=== PATIENT | female | born 1965 | race Caucasian/White ===

== ENCOUNTER 2017-08-17 07:48 | Emergency (ER) | payer SELFPAY ==
--- NOTE | 2017-08-17 08:21 | ERNOTE ---
Time Seen by Provider: 08/17/17 08:10 Stated Complaint: EAR INFECTION/CONGESTION Presenting Symptoms:: cough, sore throat, runny nose Source: patient Exam Limitations: no limitations Immunizations: IMMUNIZATION HX Immunizations Up to Date Yes History of Influenza Vaccine Yes Hx Pneumococcal Vaccination No Allergies/Adverse Reactions: Allergies amoxicillin trihydrate [From Augmentin] Adverse Reaction (Mild, Verified 07:56) RASH carbamazepine [From Tegretol] Adverse Reaction (Mild, Verified 08/17/17 07:56) RASH potassium clavulanate [From Augmentin] Adverse Reaction (Mild, Verified 07:56) RASH tramadol Adverse Reaction (Mild, Verified 08/17/17 07:56) Itching Home Medications: HOME MEDICATIONS Benazepril HCl [Lotensin] 20 mg PO DAILY 10/20/13 [Last Taken 02/17/15] Amlodipine Besylate [Norvasc] 2.5 mg PO DAILY 05/07/15 [Last Taken Unknown] Blood Sugar Diagnostic, Drum [Accu-Chek Compact Plus Strips] 1 each MC TID 05/07 [Last Taken Unknown] Butalb/Acetaminophen/Caffeine [Fioricet 50-300-40 mg Capsule] 1 - 2 each PO Q4H PRN 05/07/15 [Last Taken Unknown] Cholecalciferol (Vitamin D3) [Vitamin D3] 1,000 unit PO DAILY 05/07/15 [Last Taken Unknown] Diclofenac Sodium [Voltaren] 75 mg PO BID 05/07/15 [Last Taken Unknown] Escitalopram Oxalate [Lexapro] 20 mg PO DAILY 05/07/15 [Last Taken Unknown] Multivitamins [Multivitamin Lauren] 1 cap PO DAILY 05/07/15 [Last Taken Unknown] [place]-3 Fatty Acids/Fish Oil [Fish Oil 1,000 mg Capsule] 1 each PO DAILY [Last Taken Unknown] Polyethylene Glycol 3350 [Miralax] 17 gm PO PRN PRN 05/07/15 [Last Taken Unknown ] Temazepam [Restoril] 1 - 2 cap PO HS PRN 05/07/15 [Last Taken Unknown] metFORMIN HCL [Glucophage Xr] 500 mg PO QPM 05/07/15 [Last Taken Unknown] Fluticasone Propionate [Flonase] 2 spray NS DAILY PRN 09/23/15 [Last Taken Unknown] Timolol Maleate [Timoptic 0.5% Ophthalmic Solution] 1 drop OP DAILY 09/23/15 [ Last Taken Unknown] Famotidine [Pepcid AC] 20 mg PO BID #60 tab 09/24/15 [Last Taken Unknown] Doxycycline Monohydrate 100 mg PO BID #20 tablet 08/17/17 [Last Taken Unknown] - History of Present Ilness Narrative: Patient has had URI symptoms for two weeks, worse over the last three days, cough, congestions, ear ache, no fever, diarrhea has resolved Timing: constant Severity: moderate Frequency/Possible Cause: Reports: occasional episodes Associated Symptoms: Reports: cough, nasal congestion, nasal drainage, earache, headache, sore throat. Denies: chest pain/soreness, shortness of breath, wheezing, facial pain, fever/chills Prior Treatment: Denies: recently seen, currently on antibiotics Review of Systems - Review of Systems Constitutional: Present: recent illness, malaise. Absent: fever EYE: Absent: vision changes ENT: Present: See HPI Respiratory: Present: cough. Absent: shortness of breath Cardiology: Absent: chest pain Gastrointestinal/Abdominal: Present: See HPI. Absent: abdominal pain Genitourinary: Present: no symptoms reported. Absent: frequency, dysuria Musculoskeletal: Present: no symptoms reported Skin: Absent: rash Neurological: Present: headache. Absent: weakness, numbness - Patient's Past Medical History Patient History - Medical: Diabetes Type 2, GERD, Glaucoma, Seizures Patient History - Cardiac/Respiratory: Hypertension Patient History - Cancer: No Hx of Cancer Patient History - Surgical Procedures: Cholecystectomy, Hysterectomy, Tubal Ligation Patient History - Other: None LMP (females 10-50): other - Family History Father Family History - Cardiac/Respiratory: Coronary Heart Disease Grandfather-Maternal Family History - Cardiac/Respiratory: Other Brother Family History - Medical: Other Grandmother-Paternal Family History - Cardiac/Respiratory: Other - Social History Living Situations: other Abuse History: No History of abuse Psych History: Hx of Anxiety, Hx of Depression Smoking Status: Current every day smoker Have you smoked in the past 12 months: Yes Do you dip or chew tobacco: No Alcohol Use: none Drug Use: none - Immunizations Immunizations Up to Date: Yes Hx Pneumococcal Vaccination: No History of Influenza Vaccine: Yes Physical Exam - Physical Exam General Appearance: Present: wd/wn, alert, no apparent distress Head Exam: Present: normal inspection, no evidence of injury Eye Exam: Normal inspection: bilateral, PERRL: bilateral Ears, Nose, Throat: Present: normal except -, nasal congestion, normal pharynx Neck: Present: normal inspection, nontender. Absent: lymphadenopathy (R), lymphadenopathy (L) Respiratory: Present: no respiratory distress, normal breath sounds, lungs clear Cardiovascular/Chest: Present: regular rate, rhythm, no murmur Gastrointestinal/Abdominal: Present: nontender Neurological Exam: Present: alert, oriented, normal mood/affect, no motor/ sensory deficits Skin Exam: Present: normal color, warm/dry ED Progress - Vital Signs Patient's Vital Signs:: I have reviewed the patient's vital signs. Vital Signs: Vital Signs 08/17/17 07:51 Temperature 36.6 C Pulse Rate 86 Respiratory 14 Rate Blood Pressure 138/90 O2 Sat by Pulse 100 Oximetry - Progress/Reassessment Chief Complaint: Earache Departure Clinical Impression: Sinusitis Qualifiers: Sinusitis location: unspecified location Chronicity: acute Recurrence: not specified as recurrent Qualified Code(s): J01.90 - Acute sinusitis, unspecified - Departure Disposition: Home self-care Condition: Good Instructions: Sinusitis, Adult, [id number], Form - Excuse from Work, School, or Physical Activity Referrals: Timothy Sanches DO [Primary Care Provider] - Prescriptions: Doxycycline Monohydrate 100 mg PO BID #20 tablet
[2017-08-18 09:15] VITALS: BP 138/90
== END 2017-08-17 08:46 | disposition home or self-care (01) ==
LOC: ER 07:48
DX: K21.9 Gastro-esophageal reflux disease without esophagitis; J01.90 Acute sinusitis, unspecified; F32.9 Major depressive disorder, single episode, unspecified; F17.200 Nicotine dependence, unspecified, uncomplicated; F41.9 Anxiety disorder, unspecified; I10 Essential (primary) hypertension; E11.9 Type 2 diabetes mellitus without complications